=== PATIENT | male | born 1955 | race Caucasian/White ===

== ENCOUNTER 2019-03-12 21:06 | Emergency (ER) | payer OTHER ==
--- NOTE | 2019-03-12 21:46 | EDM.PDOC ---
ED HPI GENERAL MEDICAL PROBLEM - General Chief Complaint: General Stated Complaint: CONFUSED ABD PAIN Time Seen by Provider: 03/12/19 22:49 Source of Information: Reports: Patient History Limitations: Reports: No Limitations - History of Present Illness INITIAL COMMENTS - FREE TEXT/NARRATIVE: pt has been confused and he has had some abdomanal pain on the sides. He has a very round abdoman and it is hard to evaluate. pt has not felt right all day. He felt like he could not think straight. Onset: Today Duration: Hour(s): Location: Reports: Chest, Other (pt did rufina that he had a headache. ) Associated Symptoms: Reports: Confusion, Shortness of Breath left abd Pain Score (Numeric/FACES): 3 - Related Data Allergies Allergy/AdvReac Type Severity Reaction Status Date / Time No Known Allergies Allergy Verified 03/12/19 21:39 Home Meds: Home Meds Aspirin 325 mg PO DAILY 12/04/14 [History] Hydrochlorothiazide/Lisinopril [Lisinopril-HCTZ 20-12.5 MG] 1 tab PO DAILY 12/04 [History] Metoprolol Tartrate [Lopressor] 100 mg PO DAILY 12/04/14 [History] Simvastatin [Zocor] 20 mg PO BEDTIME 12/04/14 [History] metFORMIN HCl [Metformin HCl] 1,000 mg PO BID 12/04/14 [History] Naproxen Sodium [Aleve] 220 mg PO BID 03/12/19 [History] Social & Family History - Tobacco Use Smoking Status *Q: Never Smoker - Recreational Drug Use Recreational Drug Use: No ED ROS GENERAL - Review of Systems Review Of Systems: See Below Constitutional: Reports: Other (pt has not felt right all day. ) HEENT: Reports: No Symptoms Respiratory: Reports: No Symptoms Cardiovascular: Reports: Palpitations Endocrine: Reports: High Glucose GI/Abdominal: Reports: Other ( some pain on the sides of his abdoman. ) : Reports: No Symptoms Musculoskeletal: Reports: No Symptoms Skin: Reports: No Symptoms ED EXAM, GENERAL - Physical Exam Exam: See Below Free Text/Narrative:: The pt arrived with a vague history of not being able to think straight. He did not have a headache and he did not think he had chest pain. He arrived in a sinus rhythm and while he was being monitored he went into atrial fib. Exam Limited By: No Limitations General Appearance: Alert, No Apparent Distress, Other (pupils are equal and reactive. ) Ears: Normal TMs Nose: Normal Inspection Throat/Mouth: Normal Inspection Head: Atraumatic Neck: Normal Inspection Respiratory/Chest: No Respiratory Distress Cardiovascular: Regular Rate, Rhythm, Other (pt did go into atrial fib while he was here. ) GI/Abdominal: Soft, Non-Tender (Male) Exam: Deferred Rectal (Males) Exam: Deferred Back Exam: Normal Inspection Extremities: Normal Inspection Course - Vital Signs Last Recorded V/S: Last Vital Signs Temp 36.8 C 03/12/19 21:42 Pulse 88 03/13/19 01:37 Resp 18 03/13/19 01:37 BP 149/88 H 03/13/19 01:37 Pulse Ox 88 L 03/13/19 01:37 - Orders/Labs/Meds Labs: Laboratory Tests 03/12/19 03/12/19 03/12/19 Range/Units 21:45 21:53 21:53 WBC 13.1 H (4.5-11.0) K/uL RBC 6.00 H (4.30-5.90) M/uL Hgb 17.8 H (12.0-15.0) g/dL Hct 57.5 H (40.0-54.0) % MCV 96 (80-98) fL MCH 30 (27-31) pg MCHC 31 L (32-36) % Plt Count 142 L (150-400) K/uL Neut % (Auto) 80 H (36-66) % Lymph % (Auto) 10 L (24-44) % Tift % (Auto) 10 H (2-6) % Eos % (Auto) 0 L (2-4) % Baso % (Auto) 0 (0-1) % Sodium 136 L (140-148) mmol/L Potassium 5.3 H (3.6-5.2) mmol/L Chloride 97 L (100-108) mmol/L Carbon Dioxide 32 (21-32) mmol/L Anion Gap 12.3 (5.0-14.0) mmol/L BUN 48 H (7-18) mg/dL Creatinine 1.7 H (0.8-1.3) mg/dL Est Cr Clr Drug Dosing 42.47 mL/min Estimated GFR (MDRD) 41 L (>60) Glucose 307 H (74-106) mg/dL Lactic Acid (0.4-2.0) mmol/L Calcium 9.4 (8.5-10.1) mg/dL Total Bilirubin 0.9 (0.2-1.0) mg/dL AST 83 H (15-37) U/L ALT 163 H (12-78) U/L Alkaline Phosphatase 105 (46-116) U/L Troponin I (0.000-0.056) ng/mL NT-Pro-B Natriuret Pep 4418 H (5-125) pg/mL Total Protein 7.1 (6.4-8.2) g/dL Albumin 3.3 L (3.4-5.0) g/dL Globulin 3.8 H (2.3-3.5) g/dL Albumin/Globulin Ratio 0.9 L (1.2-2.2) Urine Color (YELLOW) Urine Appearance (CLEAR) Urine pH (5.0-8.0) Ur Specific [place] (1.008-1.030) Urine Protein (NEGATIVE) mg/dL Urine Glucose (UA) (NEGATIVE) mg/dL Urine Ketones (NEGATIVE) mg/dL Urine Occult Blood (NEGATIVE) Urine Nitrite (NEGATIVE) Urine Bilirubin (NEGATIVE) Urine Urobilinogen (0.2-1.0) EU/dL Ur Leukocyte Esterase (NEGATIVE) Urine RBC (0-5) Urine WBC (0-5) Ur Epithelial Cells Amorphous Sediment Urine Bacteria Urine Mucus Urine Other 03/12/19 03/12/19 03/13/19 Range/Units 22:45 23:15 00:45 WBC (4.5-11.0) K/uL RBC (4.30-5.90) M/uL Hgb (12.0-15.0) g/dL Hct (40.0-54.0) % MCV (80-98) fL MCH (27-31) pg MCHC (32-36) % Plt Count (150-400) K/uL Neut % (Auto) (36-66) % Lymph % (Auto) (24-44) % Tift % (Auto) (2-6) % Eos % (Auto) (2-4) % Baso % (Auto) (0-1) % Sodium (140-148) mmol/L Potassium (3.6-5.2) mmol/L Chloride (100-108) mmol/L Carbon Dioxide (21-32) mmol/L Anion Gap (5.0-14.0) mmol/L BUN (7-18) mg/dL Creatinine (0.8-1.3) mg/dL Est Cr Clr Drug Dosing mL/min Estimated GFR (MDRD) (>60) Glucose (74-106) mg/dL Lactic Acid 2.4 H (0.4-2.0) mmol/L Calcium (8.5-10.1) mg/dL Total Bilirubin (0.2-1.0) mg/dL AST (15-37) U/L ALT (12-78) U/L Alkaline Phosphatase (46-116) U/L Troponin I 2.293 H* (0.000-0.056) ng/mL NT-Pro-B Natriuret Pep (5-125) pg/mL Total Protein (6.4-8.2) g/dL Albumin (3.4-5.0) g/dL Globulin (2.3-3.5) g/dL Albumin/Globulin Ratio (1.2-2.2) Urine Color Yellow (YELLOW) Urine Appearance Clear (CLEAR) Urine pH 5.5 (5.0-8.0) Ur Specific [place] 1.020 (1.008-1.030) Urine Protein 30 H (NEGATIVE) mg/dL Urine Glucose (UA) 500 H (NEGATIVE) mg/dL Urine Ketones 15 H (NEGATIVE) mg/dL Urine Occult Blood Trace-lysed H (NEGATIVE) Urine Nitrite Negative (NEGATIVE) Urine Bilirubin Small H (NEGATIVE) Urine Urobilinogen 0.2 (0.2-1.0) EU/dL Ur Leukocyte Esterase Negative (NEGATIVE) Urine RBC 0-5 (0-5) Urine WBC 0-5 (0-5) Ur Epithelial Cells Few Amorphous Sediment Not seen Urine Bacteria Few Urine Mucus Not seen Urine Other Meds: Medications Discontinued Medications Generic Name Dose Route Start Last Admin Trade Name Freq PRN Reason Stop Dose Admin Aspirin 324 mg 03/12/19 23:24 03/12/19 23:27 Aspirin PO 03/12/19 23:25 324 mg ONETIME ONE Administration Diltiazem HCl 10 mg 03/12/19 23:03 09/16/19 23:19 Diltiazem IVPUSH 03/12/19 23:04 10 mg ONETIME ONE Administration Sodium Chloride 1,000 mls @ 999 mls/hr 03/12/19 22:30 03/12/19 22:37 Normal Saline IV 999 mls/hr ASDIRECTED CHAPIS Administration Ceftriaxone Sodium 1 gm/ 50 mls @ 100 mls/hr 03/13/19 00:13 03/13/19 00:22 Sodium Chloride IV 03/13/19 00:42 100 mls/hr ONETIME ONE Administration Insulin Human Regular 3 unit 03/12/19 22:48 03/12/19 23:23 Humulin R SUBCUT 03/12/19 22:49 3 units ONETIME ONE Administration Metoprolol Tartrate 2.5 mg 03/12/19 23:59 03/13/19 00:11 Lopressor IVPUSH 03/13/19 00:00 2.5 mg ONETIME ONE Administration - Re-Assessments/Exams Free Text/Narrative Re-Assessment/Exam: 03/13/19 00:03 Pt was given cardizem 10 mg iv push. He did convert to a sinus rhythm He was then given lopressor 2.5 mg iv. He had a cat scan of the head which showed a subacute infarct of the left partial area. He has poor r progression anteriorly on the ekg. His chest xray shows a rt lower lobe infiltrate or atelectasis. 03/15/19 01:32 Departure - Departure Time of Disposition: 01:55 Disposition: DC/Tfer to Acute Hospital 02 Condition: Fair Clinical Impression: Cerebral infarction, left hemisphere, Atrial fibrillation, Elevated troponin, Renal insufficiency, Right lower lobe pulmonary infiltrate - Discharge Information Referrals: PCP,None [Primary Care Provider] - Forms: ED Department Discharge Care Plan Goals: transfer to [facility].
[2019-03-12] MEDS ORDERED: Sodium Chloride 0.9% 1,000 ML IV SCH (22:30)
[2019-03-12] MEDS ORDERED: Insulin Regular, Human 100 Units/ML 3 ML Vial SUBCUT ONE (22:48)
[2019-03-12] MEDS ORDERED: Diltiazem 25 MG/5 ML SDV IVPUSH ONE (23:03)
[2019-03-12] MEDS ORDERED: Aspirin 81 MG Tab.Chew PO ONE (23:24)
--- NOTE | 2019-03-12 23:45 | CRLCR ---
INDICATION: Confusion TECHNIQUE: Chest 2 views. COMPARISON: None FINDINGS: Cardiovascular and mediastinum: Cardiac size is prominent. Mediastinum is within normal limits. Lungs and pleural spaces: Linear atelectasis or scarring at the left lung base. Patchy opacity in the right lower lobe. No sign of pleural effusion. No pneumothorax. Bones and soft tissues: No significant findings. IMPRESSION: Patchy opacity in the right lower lobe may represent atelectasis or infection. Dictated by Sera Barkley MD @ Mar 12 2019 11:42PM Signed by Dr. Sera Barkley @ Mar 12 2019 11:43PM
--- NOTE | 2019-03-12 23:49 | CRLCT ---
INDICATION: Confusion TECHNIQUE: Head CT without contrast. COMPARISON: None FINDINGS: CSF spaces: Within normal limits for age. Brain parenchyma: Wedge-shaped area of hypodensity in the left parietal region there are nonspecific low attenuation white matter changes consistent with chronic microvascular disease. No sign of mass, hemorrhage, or midline shift. Skull base and calvarium: Thickening of the left maxillary sinus mucosa. The mastoid air cells demonstrate no acute or significant findings. The visualized orbits are grossly unremarkable. No skull fractures. There is intracranial atherosclerosis. IMPRESSION: Acute to subacute infarction in the left parietal region. No intracranial hemorrhage or midline shift. Findings discussed with Dr. Maradiaga at 11:48 p.m. on March 12, 2019. Please note that all CT scans at this facility use dose modulation, iterative reconstruction, and/or weight-based dosing when appropriate to reduce radiation dose to as low as reasonably achievable. Dictated by Sera Barkley MD @ Mar 12 2019 11:44PM Signed by Dr. Sera Barkley @ Mar 12 2019 11:48PM
[2019-03-12] MEDS ORDERED: Metoprolol Tartrate 5 MG/5 ML SDV IVPUSH ONE (23:59)
[2019-03-13] MEDS ORDERED: cefTRIAXone 1 GM in Sodium Chloride 0.9% 50 ML IV ONE (00:13)
[2019-03-13 01:41] VITALS: BP 149/88; PULSE 88
== END 2019-03-13 01:58 ==
LOC: JP.ED 21:06
DX: I63.9 Cerebral infarction, unspecified (principal); N28.9 Disorder of kidney and ureter, unspecified; I48.91 Unspecified atrial fibrillation; R74.8 Abnormal levels of other serum enzymes; R91.8 Other nonspecific abnormal finding of lung field; Z79.899 Other long term (current) drug therapy; Z79.82 Long term (current) use of aspirin
CPT/HCPCS: 36415; 70450; 71046; 80053; 81001; 83605; 83880; 84484; 85025; 87040; 93005; 96361; 96365; 96375; 99285; A9270; J0696; J1815; J3490; J7030; J7050